=== PATIENT | female | born 1980 ===

== ENCOUNTER → 2018-03-15 | Outpatient (CLI) | payer OTHER ==
[~2018-03-15] MED LIST: LEVO-3 PO; PREN-127 PO
[2018-03-15 10:37] LABS: PLATELET COUNT, AUTOMATED 305 K/uL (150-450)
== END ==
LOC: LAB 09:20
PROVIDERS: ATTEND Obstetrics & Gynecology
DX: O09.521 Supervision of elderly multigravida, first trimester (principal); R82.79 Other abnormal findings on microbiological examination of urine
CPT/HCPCS: 36415; 81001; 85025; 86592; 86703; 86762; 86787; 86850; 86900; 86901; 87088; 87340

== ENCOUNTER → 2018-04-06 | Outpatient (CLI) | payer OTHER | LOC: LAB 09:39 | PROVIDERS: ATTEND Obstetrics & Gynecology | DX: Z11.3 Encounter for screening for infections with a predominantly sexual mode of transmission (principal); Z11.9 Encounter for screening for infectious and parasitic diseases, unspecified; E03.9 Hypothyroidism, unspecified | CPT/HCPCS: 36415; 84443; 87491; 87591 ==

== ENCOUNTER → 2018-04-12 | Outpatient (CLI) | payer OTHER | LOC: LAB 12:55 | PROVIDERS: ATTEND Obstetrics & Gynecology | DX: O99.280 Endocrine, nutritional and metabolic diseases complicating pregnancy, unspecified trimester (principal); E03.9 Hypothyroidism, unspecified | CPT/HCPCS: 36415; 84443 ==

== ENCOUNTER → 2018-07-29 | Outpatient (CLI) | payer OTHER ==
[~2018-07-29] MED LIST changes: +DIPH0.5S2 IM
[2018-07-29 09:58] LABS: PLATELET COUNT, AUTOMATED 273 K/uL (150-450)
== END ==
LOC: LAB 08:33
PROVIDERS: ATTEND Obstetrics & Gynecology
DX: O09.92 Supervision of high risk pregnancy, unspecified, second trimester (principal); O99.280 Endocrine, nutritional and metabolic diseases complicating pregnancy, unspecified trimester
CPT/HCPCS: 36415; 82950; 84443; 85025

== ENCOUNTER → 2018-08-04 | Outpatient (CLI) | payer OTHER | LOC: LAB 08:17 | PROVIDERS: ATTEND Obstetrics & Gynecology | DX: O99.810 Abnormal glucose complicating pregnancy (principal) | CPT/HCPCS: 36415; 82951; 82952 ==

== ENCOUNTER → 2018-08-26 | Outpatient (CLI) | payer OTHER ==
--- NOTE | 2018-08-26 13:55 | RADIOLOGY IMAGING REPORT ---
FACILITY: [facility] - [place] PATIENT NAME: Kylah France : 1980 MR: [id number] V: [id number] EXAM DATE: [id number] ORDERING PHYSICIAN: SAARH REYNAGA TECHNOLOGIST: Location: [facility] - [place] Patient: Kylah France : 1980 Visit/Account:[id number] Date of Sevice: 08/26/2018 EXAMINATION: Ultrasound transabdominal OB > 14 weeks with anatomic evaluation HISTORY: Size greater than dates COMPARISON: None. TECHNIQUE: Transabdominal imaging was performed for assessment of the fetus and maternal pelvic structures. T ransvaginal imaging was not performed. FINDINGS: Placenta: Anterior without previa. Uterus: Gravid, otherwise normal Cervix: Not evaluated Maternal Ovaries: Not visualized. Maternal and other adnexa findings: Not evaluated Intrauterine gestations: One. presentation: Cephalic heart rate: Normal and regular at 142 bpm Amniotic fluid index: 16.2 cm Largest amniotic fluid pocket: 6.75 cm Gestational Parameters: BPD: 7.74 cm 31 weeks/ one days, 63% HC: 20.89 cm 31 weeks/ six days, 58% AC: 26.14 cm 30 weeks/ two days, 45% FL: 5.84 cm 30 weeks/ four days, 42% Average ultrasound age (AUA): 31 weeks/zero days, CHELY 10/28/2018 Estimated gestational age by LMP: 30 weeks/two days, CHELY 11/02/2018 Estimated weight (EFW): 1596 g grams +/- 234 grams EFW for CHELY: 47 percentile Anatomic Survey: Anatomic survey not performed IMPRESSION: Single viable fetus in cephalic presentation with an estimated gestational age by measur ements of 31 weeks and zero days. Estimated gestational age by LMP is 30 weeks and two days. Estimated weight is 1596 g equivalent to the 47th percentile Report Dictated By: Rebekah Trujillo MD at 08/26/2018 1:47 PM Report E-Signed By: Rebekah Trujillo MD at 08/26/2018 1:51 PM WSN:[email or web address]
== END ==
LOC: RAD 08:24
PROVIDERS: ATTEND Obstetrics & Gynecology
DX: Z02.9 Encounter for administrative examinations, unspecified (principal)

== ENCOUNTER → 2018-10-05 | Outpatient (CLI) | payer OTHER | LOC: LAB 10:49 | PROVIDERS: ATTEND Obstetrics & Gynecology | DX: Z34.93 Encounter for supervision of normal pregnancy, unspecified, third trimester (principal) | CPT/HCPCS: 87077; 87081; 87186 ==

== ENCOUNTER → 2018-10-07 | Outpatient (CLI) | payer OTHER ==
--- NOTE | 2018-10-07 10:05 | RADIOLOGY IMAGING REPORT ---
FACILITY: [facility] - [place] PATIENT NAME: Kylah France : 1980 MR: [id number] V: [id number] EXAM DATE: ORDERING PHYSICIAN: TAMIA TORRES TECHNOLOGIST: Location: [facility] - [place] Patient: Kylah France : 1980 Visit/Account:[id number] Date of Sevice: 10/07/2018 EXAMINATION: Ultrasound transabdominal OB > 14 weeks with anatomic evaluation HISTORY: Obesity affecting , evaluate growth COMPARISON: August 26, 2018 TECHNIQUE: Transabdominal imaging was performed for assessment of the fetus and maternal pelvic structures. T ransvaginal imaging was not performed. FINDINGS: Placenta: Anterior without previa. Uterus: Gravid, otherwise normal Cervix: Not evaluated Maternal Ovaries: Not visualized. Maternal and other adnexa findings: Not visualized Intrauterine gestations: One. presentation: Cephalic heart rate: Normal and regular at 150 bpm Amniotic fluid index: 15.91 cm Largest amniotic fluid pocket: 5.02 cm Gestational Parameters: BPD: 8.8 cm 35 weeks/ four days, 40% HC: 32.59 cm 37 weeks/ zero days, 36% AC: 32.23 cm 36 weeks/ two days, 57% FL: 7.78 cm 39 weeks/ six days, greater than 98% Average ultrasound age (AUA): 37 weeks/two days, CHELY 10/26/2018 Estimated gestational age by LMP: 36 weeks/two days, CHELY 11/02/2018 Estimated weight (EFW): 3116 grams +/- 455 grams EFW for LMP: 74 percentile Anatomic Survey: Anatomic survey not performed IMPRESSION: Single viable fetus in cephalic presentation with an estimated gestational age by measur ements of 37 weeks and two days. Estimated gestational age by LMP is 36 weeks and two days. Estimated weight is 3116 g which is equivalent to the 74th percentile Report Dictated By: Rebekah Trujillo MD at 10/07/2018 9:54 AM Report E-Signed By: Rebekah Trujillo MD at 10/07/2018 9:58 AM WSN:[email or web address]
== END ==
LOC: RAD 08:50
PROVIDERS: ATTEND Obstetrics & Gynecology
DX: Z02.9 Encounter for administrative examinations, unspecified (principal)

== ENCOUNTER → 2018-11-04 | Outpatient (CLI) | payer OTHER ==
--- NOTE | 2018-11-04 16:10 | RADIOLOGY IMAGING REPORT ---
FACILITY: [facility] PATIENT NAME: Kylah France : 1980 MR: [id number] V: [id number] EXAM DATE: ORDERING PHYSICIAN: TAMIA TORRES TECHNOLOGIST: Location: [facility] [place] Patient: Kylah France : 1980 Visit/Account:[id number] Date of Sevice: 11/04/2018 [facility] [place] TRANVAGINAL NON-OB HISTORY: SUPPRESSED since delivery one week ago TECHNIQUE: Transvaginal and transabdominal ultrasound pelvis. COMPARISON: October 07, 2018 FINDINGS: Uterus: ; 13.3 cm length x 7.2 cm AP x 10.4 cm transverse. Myometrium: Unremarkable. Endometrium: Endometrium appeared heterogeneous containing both fluid and heterogeneous soft tissue d ensity material. This collection measured approximately 5.6 x 2 x 3 cm.; Cervix: Grossly negative. Ovaries: Right - not visualized Left - not visualized Blood flow is documented in each ovary by duplex Doppler ultrasound. Adnexa: Grossly unremarkable. Free pelvic fluid: None. IMPRESSION: The endometrium appears heterogeneous containing both fluid and heterogeneous soft tissue density mat erial. This collection measures approximately 5.6 x 2 x 3 cm. Although this finding could represent blood clots the differential diagnosis includes retained products of conception. Results were called to TAMIA TORRES at 11/04/2018 4:02 PM. Report Dictated By: Rebekah Trujillo MD at 11/04/2018 3:53 PM Report E-Signed By: Rebekah Trujillo MD at 11/04/2018 4:02 PM WSN:[email or web address]
== END ==
LOC: RAD 14:38
PROVIDERS: ATTEND Obstetrics & Gynecology
DX: O92.5 Suppressed lactation (principal)

== ENCOUNTER → 2018-11-04 | Outpatient (CLI) | payer OTHER | LOC: LAB 12:03 | PROVIDERS: ATTEND Obstetrics & Gynecology | DX: O92.4 Hypogalactia (principal) | CPT/HCPCS: 36415; 84443 ==

== ENCOUNTER 2018-11-05 00:30 | Day surgery (SDC) | payer OTHER ==
[2018-11-04 18:39] LABS: PLATELET COUNT, AUTOMATED 372 K/uL (150-450)
[~2018-11-05] VITALS: Ht 162.6 cm; Wt 136.1 kg
[2018-11-05 07:16] VITALS: BP 136/109
[2018-11-05] MEDS ORDERED: ONDANSETRON 4 MG/2 ML VIAL ONE (07:37)
[2018-11-05] MEDS ORDERED: PROPOFOL EMUL(*) 10MG/ML 20 ML 20 ML ONE (07:37)
[2018-11-05] MEDS ORDERED: DEXAMETHASONE SOD PHOS 10MG/ML ONE (07:37)
[2018-11-05] MEDS ORDERED: fentaNYL CITR 100 MCG/2 ML AMP ONE (07:38)
[2018-11-05] MEDS ORDERED: LIDOCAINE 2% IV 100 MG/5ML SYR ONE (07:39)
[2018-11-05] MEDS ORDERED: NEOSTIG METHYLSUL 10MG/10ML VL ONE (07:41)
[2018-11-05] MEDS ORDERED: GLYCOPYRROLATE 1 MG/5 ML INJ ONE (07:41)
[2018-11-05] MEDS ORDERED: MIDAZOLAM 2 MG/2 ML VIAL IVP PRN (07:45)
[2018-11-05] MEDS ORDERED: LIDOCAINE/SOD BICARB 8.4% SYR ID ONE (07:45)
[2018-11-05] MEDS ORDERED: NORMOSOL R SOLN(*) 1000 ML BAG 1,000 ML IV PRN (07:45)
[2018-11-05] MEDS ORDERED: FAMOTIDINE 20 MG TAB PO ONE (07:45)
[2018-11-05] MEDS ORDERED: ceFAZolin(*) 1 GM VIAL 3 GM in NS(*) 0.9% 100 ML BAG 100 ML IVPB ONE (07:45)
[2018-11-05] MEDS ORDERED: LR(*) 1000 ML BAG 1,000 ML IV ONE (09:37)
[2018-11-05] MEDS ORDERED: oxyCODON/ACET (*)5/325MG (CII) 1 TAB TAB PO PRN (09:40)
[2018-11-05] MEDS ORDERED: IBUPROFEN 800 MG TAB PO SCH (09:40)
[2018-11-05] MEDS ORDERED: METOCLOPRAMIDE 10 MG/2 ML SDV IVP PRN (09:40)
--- NOTE | 2018-11-05 09:41 | Short(Outpt) Discharge Summary ---
Discharge Summary Reason for Hosp/Final Diag: (1) Status post D&C Departure Discharge to: Home, Self Care Discharge Instructions Home Meds Active Scripts Levothyroxine Sodium (LEVOTHYROXINE SODIUM) 100 Mcg Tablet, 100 MCG PO QDAY, #60 TAB 1 Refill Prov:TAMIA TORRES MD 07/29/18 Reported Medications Vits W-Ca,Fe,Fa(<1MG) ( VITAMINS) 1 Each Tablet, 1 EACH PO DAILY, TAB 01/07/18 Follow up Referrals: RATINGS ANALYST @ [facility] with TAMIA TORRES MD Diet: Regular Activity: As Tolerated TAMIA TORRES MD Nov 05, 2018 09:41
--- NOTE | 2018-11-05 10:19 | Post Operative Note ---
Operative Note - PROGRAM CONTROL ANALYST Operative Day Date: Nov 05, 2018 Time: 10:15 Physicians Surgeon: Jadon Anesthesia: General, Jeannine Diagnosis Pre-Op Diagnosis: Retained placenta; Poor milk supply Procedure Procedure(s): Suction D&C Specimen Removed:(Maybe N/A): POC Fluids Estimated Blood Loss: <50cc TAMIA TORRES MD Nov 05, 2018 10:19
--- NOTE | 2018-11-05 10:36 | OPERATIVE REPORT 1 ---
EVENT DATE: November 05, 2018 SURGEON: Julissa Diop MD ANESTHESIOLOGIST: Bao Paez MD ANESTHESIA: General. CLINICAL LABORATORY DIRECTOR: Britney Beatty DO PREOPERATIVE DIAGNOSES 1. Retained placenta. 2. Poor milk supply . PROCEDURE PERFORMED Ultrasound-guided suction dilation and curettage. SPECIMENS REMOVED Products of conception. ESTIMATED BLOOD LOSS Less than 50 cc. INDICATIONS This patient is a 37-year old 1, para 1 who is 7 days from vaginal delivery at [facility]. She presented to the Pediatric Clinic with low milk supply and her baby losing weight as opposed to gaining. During an evaluation, she had an ultrasound, which revealed a 5.6 x 2 x 3 heterogenous collection within the uterus, most consistent with retained placenta. Due to her recent history of low milk supply, she was consented for suction dilation and curettage to evacuate the uterus. Please see the history and physical for full details. DESCRIPTION OF PROCEDURE The patient was properly identified and taken to the operating room. She was placed under general anesthesia and then placed in the dorsal lithotomy position and prepped and draped in sterile fashion for vaginal procedure. At this time, Dr. Beatty was able to apply the abdominal ultrasound probe, which did confirm a heterogenous endometrial lining. The speculum was then placed by myself, visualizing the cervix, which was multiparous and without lesion. The anterior lip was grasped with an Allis clamp and placed on gentle traction. The cervix was still dilated and passing a 9 mm Hegar dilator was able to be performed without any resistance. Therefore, a 9 mm suction curette was assembled and set to an appropriate pressure. At this time, the curette was placed up to the uterine fundus under ultrasound guidance. Suction was applied and two passes were taken with this suction curette. There was relatively minimal tissue that returned. However, there were not any large masses left within the uterus on transabdominal ultrasound at the end of these two passes. Therefore, the speculum and Allis clamp were removed and a vaginal ultrasound probe was able to be introduced and visualization of the uterus at that time revealed no further second endometrial lining or excess tissue. Therefore, the vaginal probe was removed and the procedure was terminated. The patient tolerated this procedure well and recovered in the Post-Anesthesia Care Unit. ANDREW
== END 2018-11-05 10:14 | disposition home or self-care (01) ==
LOC: OR 00:30
PROVIDERS: ATTEND Obstetrics & Gynecology
DX: O73.1 Retained portions of placenta and membranes, without hemorrhage (principal)
CPT/HCPCS: 36415; 58120; 85025; 86850; 86900; 86901; 88305; J0690; J1100; J2001; J2250; J2405; J2704; J2710; J3010; J3490; J7050